=== PATIENT | female | born 1945 | race Caucasian/White ===

== ENCOUNTER 2021-04-21 05:40 | Inpatient (IN) ==
[2021-04-21] MEDS ORDERED: ACETAMINOPHEN 500 MG TABLET PO ONE (05:48)
[2021-04-21] MEDS ORDERED: FAMOTIDINE 20 MG TABLET PO ONE (05:48)
[2021-04-21] MEDS ORDERED: GABAPENTIN 400 MG CAPSULE PO ONE (05:48)
[2021-04-21] MEDS ORDERED: VANCOMYCIN INJ 1,000 MG in SODIUM CHLORIDE 0.9% 250 ML IV ONE (06:00)
[2021-04-21] MEDS ORDERED: ceFAZolin 2,000 MG/50 ML DUPLEX IV ONE (06:00)
[2021-04-21] MEDS ORDERED: LACTATED RINGERS 1,000 ML IV SCH (06:00)
[2021-04-21] MEDS ORDERED: ROPIVACAINE 0.5% 30 ML VIAL ONE (06:35)
[2021-04-21] MEDS ORDERED: DEXAMETHASONE 4 MG/1 ML VIAL ONE (06:35)
[2021-04-21] MEDS ORDERED: DEXMEDETOMIDINE 200 MCG/2 ML VIAL ONE ×2 (06:35→07:05)
[2021-04-21] MEDS ORDERED: LIDOCAINE 1% 5 ML VIAL ONE (06:35)
[2021-04-21] MEDS ORDERED: MIDAZOLAM 2 MG/2 ML VIAL ONE (06:50)
[2021-04-21] MEDS ORDERED: ZALEPLON 5 MG CAPSULE PO PRN (07:25)
[2021-04-21] MEDS ORDERED: ONDANSETRON 4 MG/2 ML VIAL IV PRN (07:25)
[2021-04-21] MEDS ORDERED: MORPHINE 2 MG/1 ML SYRINGE IV PRN ×2 (07:25)
[2021-04-21] MEDS ORDERED: MAGNESIUM HYDROXIDE SUSP 30 ML UDCUP PO PRN (07:25)
[2021-04-21] MEDS ORDERED: diphenhydrAMINE CAP 25 MG CAPSULE PO PRN (07:25)
[2021-04-21] MEDS ORDERED: BACITRACIN OINT 0.9 GM PACK TOP ONE (08:02)
[2021-04-21] MEDS ORDERED: GLYCOPYRROLATE 0.4 MG/2 ML VIAL ONE (08:20)
[2021-04-21] MEDS ORDERED: ePHEDrine 50 MG/ML VIAL ONE (08:26)
[2021-04-21 09:36] LABS: Bacteria,Urine Occasional /HPF (Few); Bilirubin,Urine Negative (Negative); Blood, Urine Negative (Negative); Glucose,Urine (UA) Negative (Negative); Ketones,Urine Negative (Negative); Mucus,Urine Occasional /LPF (Occasional); Nitrite,Urine Negative (Negative); Protein,Urine Negative; RBC,Urine <1 /HPF (0-4); Squamous Epithelial Cell,Urine Occasional /HPF (0-10); Urine Appearance CLEAR (Clear); Urine Color Yellow (Yellow); Urine Specific Gravity 1.008 (1.001-1.035); Urine Urobilinogen < 2.0 EU/DL (<2.0)
[2021-04-21] MEDS: LACTATED RINGERS 1,000 ML IV SCH ×2 (12:02→17:41)
[2021-04-21] MEDS: ceFAZolin 2,000 MG/50 ML DUPLEX IV SCH ×2 (12:02→21:31)
[2021-04-21] MEDS: KETOROLAC 15 MG/1 ML VIAL IV SCH ×3 (12:16→21:31)
[2021-04-21] MEDS: DOCUSATE SODIUM 100 MG CAPSULE PO SCH (21:30)
[2021-04-22] MEDS: LACTATED RINGERS 1,000 ML IV SCH (04:08)
[2021-04-22] MEDS: FONDAPARINUX 2.5 MG/0.5 ML SYRINGE SUBCUT SCH (05:01)
[2021-04-22] MEDS: KETOROLAC 15 MG/1 ML VIAL IV SCH ×3 (05:03→10:18)
[2021-04-22 05:18] LABS: Basophils % 0.1 % (0.0-0.8); Hematocrit 37.8 VOL% (35.7-47.0); Hemoglobin 11.8 GM/DL (12.0-16.0); Immature Granulocytes % 0.4 %; Immature Granulocytes Absolute 0.05 #; Lymphocytes # 0.6 10*3/uL (1.4-4.0); Lymphocytes % 4.9 % (21.3-54.2); Mean Corpuscular HGB Conc 31.2 GM/DL (32-36); Mean Corpuscular Volume 91.3 FL (87-102); Mean Platelet Volume 12.4 FL (9.6-12.0); Neutrophils % 82.6 % (38.7-73.9); Platelet Count 180 T/CUMM (130-400); Red Blood Count 4.14 MC/CUMM (3.8-5.5); Red Cell Distribution Width 14.1 % (9.3-17.3); White Blood Count 11.3 T/CUMM (4-12)
[2021-04-22 05:40] LABS: Lymphocytes 1 % (20-55); Platelet Estimate Adequate; Segmented Neutrophils 88 % (50-85); Total Cells Counted 100
[2021-04-22 05:41] LABS: Calcium 8.7 MG/DL (8.5-10.1); Osmolality,Calculated 281.5 MOS/KG (273-304); Potassium 4.3 MMOL/L (3.5-5.1)
[2021-04-22] MEDS: LEVOTHYROXINE 125 MCG TABLET PO SCH (06:30)
[2021-04-22] MEDS: CALCIUM (CARBONATE)/VITAMIN D 600 MG-400 UNIT TABLET PO SCH (08:19)
[2021-04-22] MEDS: amLODIPine 2.5 MG TABLET PO SCH (08:19)
[2021-04-22] MEDS: CHOLECALCIFEROL 5,000 UNIT TABLET PO SCH (08:20)
[2021-04-22] MEDS: AMIODARONE 200 MG TABLET PO SCH (08:20)
[2021-04-22] MEDS: ASCORBIC ACID 500 MG TABLET PO SCH (08:20)
[2021-04-22] MEDS: hydroCHLOROthiazide 25 MG TABLET PO SCH (08:20)
[2021-04-22] MEDS: DOCUSATE SODIUM 100 MG CAPSULE PO SCH ×2 (08:23→21:08)
[2021-04-22] MEDS ORDERED: BISACODYL 5 MG TABLET PO ONE (20:36)
[2021-04-23] MEDS: LEVOTHYROXINE 125 MCG TABLET PO SCH (05:35)
[2021-04-23] MEDS: FONDAPARINUX 2.5 MG/0.5 ML SYRINGE SUBCUT SCH (05:36)
[2021-04-23 05:47] LABS: Basophils % 0.5 % (0.0-0.8); Eosinophils # 0.1 10*3/uL (0.0-0.87); Eosinophils % 1.9 % (0.00-10.9); Hematocrit 35.5 VOL% (35.7-47.0); Hemoglobin 10.9 GM/DL (12.0-16.0); Immature Granulocytes % 0.5 %; Immature Granulocytes Absolute 0.04 #; Lymphocytes # 1.2 10*3/uL (1.4-4.0); Mean Corpuscular HGB Conc 30.7 GM/DL (32-36); Mean Corpuscular Volume 91.5 FL (87-102); Mean Platelet Volume 12.9 FL (9.6-12.0); Monocytes % 15.1 % (1.7-12.7); Platelet Count 164 T/CUMM (130-400); Red Blood Count 3.88 MC/CUMM (3.8-5.5); Red Cell Distribution Width 14.6 % (9.3-17.3); White Blood Count 7.6 T/CUMM (4-12)
[2021-04-23] MEDS: amLODIPine 2.5 MG TABLET PO SCH (08:57)
[2021-04-23] MEDS: CHOLECALCIFEROL 5,000 UNIT TABLET PO SCH (08:57)
[2021-04-23] MEDS: DOCUSATE SODIUM 100 MG CAPSULE PO SCH (08:57)
[2021-04-23] MEDS: ASCORBIC ACID 500 MG TABLET PO SCH (08:57)
[2021-04-23] MEDS: AMIODARONE 200 MG TABLET PO SCH (08:58)
[2021-04-23] MEDS: CALCIUM (CARBONATE)/VITAMIN D 600 MG-400 UNIT TABLET PO SCH (08:58)
[2021-04-23] MEDS: hydroCHLOROthiazide 25 MG TABLET PO SCH (08:58)
[2021-04-23 11:50] VITALS: BP 111/58
== END 2021-04-23 16:01 | disposition home health service (06) | DRG 470 ==
LOC: N.OR 05:40 → N.SDSINP 05:42 → EDSTATUS 07:30 → N.3E 07:52
PROVIDERS: ADMIT Orthopaedic Surgery; ATTEND Orthopaedic Surgery